=== PATIENT | female | born 1995 | race Caucasian/White ===

== ENCOUNTER 2017-01-27 15:16 | Emergency (ER) | payer OTHER ==
[~2017-01-27] VITALS: Ht 160 cm; Wt 54.4 kg
--- NOTE | 2017-01-27 15:16 | NUR ---
Patient BIB [facility] for pre-book evaluation, transferred to [place] [facility]. RN evaluating patient at bedside.
[2017-01-27 15:24] VITALS: BP 131/80
--- NOTE | 2017-01-27 15:26 | NUR ---
PATIENT BIB [facility] FOR PRE-BOOK CLEARANCE . PT STATES SHE HAS NO MEDICAL HX AND DENIES PAIN . DENIES N/V/D; SKIN IS PINK/WARM/DRY; AAOX4 WITH EVEN AND STEADY GAIT; LUNGS CLEAR BL; HR EVEN AND REGULAR; PT DENIES ANY FEVER, CP, SOB, OR COUGH AT THIS TIME; PATIENT STATES PAIN OF 0/10 AT THIS TIME; VSS; CHP CHAIRSIDE. ER MD MADE AWARE OF PT STATUS.
--- NOTE | 2017-01-27 15:30 | NUR ---
ERMD EVAL. PATIENT IN OVER FLOW. CHP WITH PATIENT
[2017-01-27] MEDS ORDERED: BACITRACIN OINT 500 UNITS/GM PKT TP ONE (15:45)
--- NOTE | 2017-01-27 15:47 | NUR ---
LT. KNEE ABRASION CLEANED AND DRESSED WITH BACITRACIN OINT.
--- NOTE | 2017-01-27 15:50 | NUR ---
RT.BEHIND THIGH ABRASION CLEANED WITH BETADINE/SALINE AND DREASED WITH BACITRACIN OINT.
--- NOTE | 2017-01-27 16:05 | NUR ---
AWAITING FOR DISPOSITION
[2017-01-27 16:21] VITALS: BP 126/70
--- NOTE | 2017-01-27 16:23 | NUR ---
Patient discharged with v/s stable. Written and verbal after care instructions given and explained. Patient verbalized understanding. Police with in custody. All questions addressed prior to discharge. Advised to follow up with PMD.
== END 2017-01-27 16:23 ==
LOC: MED 15:16
DX: Z02.89 Encounter for other administrative examinations (principal); S80.212A Abrasion, left knee, initial encounter; S70.311A Abrasion, right thigh, initial encounter; R03.0 Elevated blood-pressure reading, without diagnosis of hypertension; V89.2XXA Person injured in unspecified motor-vehicle accident, traffic, initial encounter; Y93.89 Activity, other specified; Y92.89 Other specified places as the place of occurrence of the external cause; Y99.8 Other external cause status
CPT/HCPCS: 90471; 90715; 96372; 99283